=== PATIENT | male | born 1990 | race Caucasian/White ===

== ENCOUNTER 2019-06-26 14:25 | Emergency (ER) | payer BC ==
[~2019-06-26] VITALS: Ht 188 cm; Wt 155.5 kg
[2019-06-26 19:31] VITALS: BP 165/108
== END 2019-06-26 19:41 | disposition home or self-care (01) ==
LOC: ED 19:06
DX: R09.02 Hypoxemia (principal); I10 Essential (primary) hypertension
CPT/HCPCS: 36415; 71045; 71275; 80053; 83880; 85025; 93005; 94640; 99284; J7620; Q9967